=== PATIENT | male | born 1930 | race Caucasian/White ===

== ENCOUNTER 2016-09-15 08:53 | Emergency (ER) | payer MEDICARE, OTHER ==
[~2016-09-15] VITALS: Ht 175.3 cm; Wt 94.5 kg
[~2016-09-15 08:53] MED LIST: ALPRAZOLAM0.25 MG PO; AMLODIPINE5 MG PO; ANTIVERT 25MG25 MG PO; CIPRO500 MG PO; COLACE 100100 MG/CAP PO; FISH OIL CONC1000 MG PO; FLOMAX 0.40.4 MG/CAP PO; FLOMAX0.4 MG PO; LEVOTHYROXINE PO; LIPITOR 10MG10 MG PO; LIPITOR PO; LISINOPRIL20 MG PO; LOPRESSOR 225 MG/TAB PO; LOTREL 10 MG-201 CAP PO; PERCOCET 325 MG1 TA2 PO; PHENERGAN 25 TA25 MG PO; PHENERGAN25 MG RC; PRILOSEC 20MG20 MG PO; SERTRALINE; SERTRALINE50 MG PO; TENORMIN 2525 MG/TAB PO; TYLENOL 325MG325 MG PO; [UNRECOGNIZED DRUG - OTHER]; [UNRECOGNIZED DRUG - REMARK]
[2016-09-15 08:55] VITALS: TEMP 98.1
[2016-09-15] MEDS ORDERED: PREDNISONE20 MG PO (09:19)
[2016-09-15] MEDS ORDERED: ULTRAM 50MG TAB50 MG PO (09:19)
[2016-09-15 11:09] VITALS: BP 157/76; PULSE 67
== END 2016-09-15 11:07 | disposition home or self-care (01) ==
LOC: COL.ER 08:53
DX: M54.2 Cervicalgia (principal); I10 Essential (primary) hypertension; F32.9 Major depressive disorder, single episode, unspecified; Z85.46 Personal history of malignant neoplasm of prostate; F41.9 Anxiety disorder, unspecified; Z87.891 Personal history of nicotine dependence
CPT/HCPCS: J7512

== ENCOUNTER 2018-05-31 09:37 | Emergency (ER) | payer MEDICARE ==
[~2018-05-31] VITALS: Ht 177.8 cm; Wt 92.7 kg
[~2018-05-31 09:37] MED LIST changes: -AMLODIPINE5 MG PO; +NORVASC 10MG10 MG PO; +PREDNISONE20 MG PO; +ULTRAM 50MG TAB50 MG PO
[2018-05-31 09:43] VITALS: TEMP 97.2
[2018-05-31] MEDS ORDERED: COLACE 100100 MG/CAP PO (09:51)
[2018-05-31] MEDS ORDERED: PROZAC 10MG10 MG PO (09:52)
[2018-05-31] MEDS ORDERED: MAG-OX 400400 MG/TAB PO (09:52)
[2018-05-31] MEDS ORDERED: FLONASEALLERGY NS (09:52)
[2018-05-31] MEDS ORDERED: VITAMIN B-1000 MCG/T PO (09:53)
[2018-05-31] MEDS ORDERED: PAMELOR 10MG10 MG PO (09:53)
[2018-05-31] MEDS ORDERED: VITAMIN D31000 I1 PO (09:53)
[2018-05-31 10:05] LABS: BASO % 0.6 % (0.0-2.0); GRAN # 2.9 (1.4-6.5); GRAN % 54.3 % (42.2-75.2); HEMATOCRIT 43.9 % (42.0-52.0); HEMOGLOBIN 14.8 g/dl (13.5-18.0); LYMPH % 37.9 % (20.0-51.0); MEAN CELL VOLUME 92 fl (80.0-100.0); MEAN CORPUSCULAR HEMOGLOBIN 31 pg (27.0-31.0); MEAN CORPUSCULAR HGB CONC 34 g/dl (33.0-37.0); MEAN PLATELET VOLUME 9.7 fl (7.4-10.4); MONO # 0.4 (0.1-0.6); MONO % 6.8 % (1.7-9.3); PLATELET COUNT 180 K/mm3 (130-400); RED BLOOD COUNT 4.78 M/mm3 (4.20-5.60)
[2018-05-31 10:11] LABS: ALANINE AMINOTRANSFERASE 10 U/L (21-72); ALBUMIN 4.4 gm/dL (3.5-5.0); ALKALINE PHOSPHATASE 80 U/L (50-136); ANION GAP 10 mmol/L (7-16); AST,SGOT 16 U/L (15-37); BILIRUBIN,TOTAL 0.6 mg/dL (0.0-1.0); BLOOD UREA NITROGEN 17 mg/dL (9-20); CALCIUM 9.7 mg/dL (8.4-10.2); CARBON DIOXIDE 27 mmol/L (22-30); CHLORIDE 104 mmol/L (98-107); CREATININE, serum 1.07 mg/dL (0.66-1.25); GLUCOSE 138 mg/dL (74-106); POTASSIUM 4.1 mmol/L (3.4-5.0); SODIUM 141 mmol/L (137-145); TOTAL PROTEIN 7.7 gm/dL (6.4-8.2)
[2018-05-31 10:28] LABS: TROPONIN-I < 0.012 ng/mL (0.000-0.035)
[2018-05-31] MEDS ORDERED: ANTIVERT 25MG25 MG PO (10:38)
[2018-05-31 10:52] VITALS: BP 171/89; PULSE 66
== END 2018-05-31 10:53 | disposition other institution (70) ==
LOC: COL.ER 09:37
PROVIDERS: Emergency Medicine
DX: R42 Dizziness and giddiness (principal); I10 Essential (primary) hypertension; Z79.51 Long term (current) use of inhaled steroids
CPT/HCPCS: J2550; J7040